=== PATIENT | female | born 1965 | race Two or more races ===

== ENCOUNTER → 2024-08-20 | Outpatient (CLI) | payer OTHER ==
[2024-08-20 11:11] LABS: Basophils # (auto) 0 10 ^3/uL (0-0.2); Basophils % (auto) 0.4 % (0.0-2.0); Eosinophils # (auto) 0.3 10 ^3/uL (0-0.8); Eosinophils % (auto) 3.9 % (0.0-7.0); Hematocrit 42.3 % (36.0-46.0); Hemoglobin 14.2 g/dL (12.2-16.2); Lymphocytes # (auto) 2.3 10 ^3/uL (0.4-5.4); Lymphocytes % (auto) 32.7 % (10.0-50.0); Mean Corpuscular Hemoglobin 30.3 pg (28.0-32.0); Mean Corpuscular Hgb Conc. 33.5 g/dL (32.0-36.0); Mean Corpuscular Volume 90.5 fL (80.0-100.0); Monocytes # (auto) 0.5 10 ^3/uL (0-1.3); Monocytes % (auto) 7.6 % (0.0-12.0); Neutrophils # (auto) 3.8 10 ^3/uL (1.6-8.6); Neutrophils % (auto) 55.4 % (37.0-80.0); Platelet Count (auto) 295 10^3/uL (140-450); Red Blood Cells 4.67 10^6/uL (4.0-5.20); Red Cell Distribution Width 13.6 % (11.8-14.3); White Blood Cell 6.9 10^3/uL (4.4-10.8)
[2024-08-20 11:59] LABS: Alanine Aminotransferase 31 U/L (7-40); Anion Gap 9 (5-15); Calcium 10.1 mg/dL (8.7-10.4); Carbon Dioxide 27 mmol/L (20-31); Chloride 106 mmol/L (98-107); Potassium 4.7 mmol/L (3.5-5.1); Sodium 142 mmol/L (136-145)
[2024-08-20 12:00] LABS: BUN/Creatinine Ratio 18.4 (10.0-20.0); Blood Urea Nitrogen 18 mg/dL (9-23); Triglycerides 89 mg/dL (< 150)
[2024-08-20 12:01] LABS: Albumin 4.8 g/dL (3.2-4.8); Aspartate Aminotransferase 20 U/L (13-40); LDL Cholesterol 77 mg/dL (< 100)
[2024-08-20 12:02] LABS: Bilirubin, Total 0.5 mg/dL (0.2-1.0); Cholesterol 172 mg/dL (< 200); Total Protein 7.5 g/dL (5.7-8.2)
[2024-08-20 12:10] LABS: Alkaline Phosphatase 120 U/L (46-116); Glucose 115 mg/dL (74-106); HDL Cholesterol 75 mg/dL (40-59)
== END | disposition home or self-care (01) ==
LOC: LAB 10:15
PROVIDERS: ATTEND Family Medicine
DX: I10 Essential (primary) hypertension (principal); E11.69 Type 2 diabetes mellitus with other specified complication; E78.5 Hyperlipidemia, unspecified; L57.8 Other skin changes due to chronic exposure to nonionizing radiation
CPT/HCPCS: 36415; 80053; 80061; 82043; 82306; 83036; 84443; 85025

== ENCOUNTER 2025-05-09 08:58 | Outpatient (CLI) | payer OTHER ==
[2025-05-09 09:57] LABS: Alanine Aminotransferase 22 U/L (7-40); Albumin 4.3 g/dL (3.2-4.8); Alkaline Phosphatase 115 U/L (46-116); Anion Gap 11 (5-15); BUN/Creatinine Ratio 13.9 (10.0-20.0); Blood Urea Nitrogen 15 mg/dL (9-23); Calcium 9.5 mg/dL (8.7-10.4); Carbon Dioxide 26 mmol/L (20-31); Chloride 107 mmol/L (98-107); Cholesterol 187 mg/dL (< 200); Glucose 117 mg/dL (74-106); Hematocrit 41.8 % (36.0-46.0); Hemoglobin 14.1 g/dL (12.2-16.2); Mean Corpuscular Hemoglobin 30.3 pg (28.0-32.0); Mean Corpuscular Volume 89.7 fL (80.0-100.0); Nucleated Red Blood Cells % 0.0 %; Potassium 5.0 mmol/L (3.5-5.1); Sodium 144 mmol/L (136-145); Total Protein 7.4 g/dL (5.7-8.2); Triglycerides 95 mg/dL (< 150)
[2025-05-09 09:58] LABS: Bilirubin, Total 0.7 mg/dL (0.2-1.0); HDL Cholesterol 70 mg/dL (40-59)
[2025-05-09 10:33] LABS: Uric Acid 6.7 mg/dL (3.1-7.8)
== END 2025-05-09 17:00 | disposition home or self-care (01) ==
LOC: LAB 08:58
PROVIDERS: ATTEND Family Medicine
DX: I10 Essential (primary) hypertension (principal); E11.69 Type 2 diabetes mellitus with other specified complication; E78.5 Hyperlipidemia, unspecified; G40.909 Epilepsy, unspecified, not intractable, without status epilepticus; F41.1 Generalized anxiety disorder
CPT/HCPCS: 36415; 80053; 80061; 82043; 83036; 84550; 85025